=== PATIENT | female | born 1985 | race Two or more races ===

== ENCOUNTER 2023-04-07 21:22 | Inpatient (IN) | payer OTHER ==
[~2023-04-07] VITALS: Ht 162.6 cm; Wt 72.6 kg
[2023-04-08] VITALS: BP 114/63; TEMP 97.9; O2SAT 99
[2023-04-08] MEDS ORDERED: DEXTROSE 50%-WATER 50 ML DISP.SYRIN IV PRN
[2023-04-08] MEDS ORDERED: MORPHINE SULFATE INJ 2 MG/ML DISP.SYRIN IV PRN
[2023-04-08] MEDS ORDERED: ACETAMINOPHEN 325 MG TABLET PO PRN
[2023-04-08] MEDS ORDERED: ONDANSETRON HCL/PF 4 MG/2 ML VIAL IVP PRN
[2023-04-08] MEDS ORDERED: EMPA1TAB5 PO (01:07)
[2023-04-08] MEDS ORDERED: NITR2.5C17 PO (01:07)
[2023-04-08] MEDS ORDERED: CALC-261 PO (01:07)
[2023-04-08] MEDS ORDERED: CARV6.252 PO (01:07)
[2023-04-08] MEDS ORDERED: LEVO50TA8 PO (01:07)
[2023-04-08] MEDS: ATORVASTATIN 10 MG TABLET PO SCH ×2 (03:11→21:54)
[2023-04-08] MEDS: ENOXAPARIN SODIUM 40 MG/0.4 ML DISP.SYRIN SQ SCH ×2 (03:17→21:00)
[2023-04-08 05:50] LABS: BASOPHILS % (AUTO) 0.3 % (0.0-2.0); EOSINOPHILS # (AUTO) 0.3 K/uL (0.0-0.7); EOSINOPHILS % (AUTO) 3.6 % (0.0-6.0); HEMATOCRIT 37 % (33-45); LYMPHOCYTES # (AUTO) 2.3 K/uL (0.8-4.8); LYMPHOCYTES % (AUTO) 28.4 % (20.0-44.0); MEAN CORPUSCULAR HEMOGLOBIN 25 PG (26.0-33.0); MEAN CORPUSCULAR HGB CONC 32 g/dl (31.0-36.0); MEAN CORPUSCULAR VOLUME 77 fL (82-100); MONOCYTES # (AUTO) 0.6 K/uL (0.1-1.30); MONOCYTES % (AUTO) 7.1 % (2.0-12.0); NEUTROPHILS # (AUTO) 4.9 K/uL (1.8-8.9); NEUTROPHILS % (AUTO) 60.6 % (43.0-81.0); PLATELET COUNT (AUTO) 350 K/uL (150-450); RED BLOOD CELL COUNT(AUTO) 4.84 MIL/uL (4.0-5.2); RED CELL DISTRIBUTION WIDTH 15.6 % (11.5-15.0); WHITE BLOOD COUNT (AUTO) 8.1 K/uL (4.3-11.0)
[2023-04-08 06:08] LABS: CALCIUM, SERUM 10.3 mg/dL (8.5-10.1); CREATININE 0.6 mg/dL (0.6-1.3); PHOSPHORUS 5.8 mg/dL (2.5-4.9); POTASSIUM 3.7 mmol/L (3.5-5.1)
[2023-04-08] MEDS: BLOOD SUGAR DIAGNOSTIC 1 EACH STRIP IN SCH ×4 (06:56→22:56)
[2023-04-08 07:00] VITALS: BP 112/69; TEMP 97.8; O2SAT 96
[2023-04-08] MEDS: ASPIRIN 81 MG TAB.CHEW PO SCH (08:05)
[2023-04-08] MEDS ORDERED: LEVO125T8 PO (09:17)
[2023-04-08] MEDS ORDERED: [UNRECOGNIZED DRUG - OTHER] PO (09:17)
[2023-04-08] MEDS ORDERED: [UNRECOGNIZED DRUG - OTHER] PO (09:17)
[2023-04-08] MEDS ORDERED: [UNRECOGNIZED DRUG - OTHER] PO (09:17)
[2023-04-08] MEDS ORDERED: [UNRECOGNIZED DRUG - OTHER] PO (09:17)
[2023-04-08] MEDS ORDERED: [UNRECOGNIZED DRUG - MIXTURE] PO (09:17)
[2023-04-08] MEDS: INSULIN REGULAR, HUMAN 100 UNIT/ML 3 ML VIAL SQ PRN ×3 (11:46→22:55)
[2023-04-08 12:00] VITALS: BP 123/86; TEMP 97.4; O2SAT 100
[2023-04-08] MEDS ORDERED: NITROGLYCERIN 0.4 MG/TAB BOTTLE SL PRN (14:30)
[2023-04-08 16:00] VITALS: BP 132/65; TEMP 98.2; O2SAT 100
[2023-04-08 20:00] VITALS: BP 106/61; TEMP 98; O2SAT 98
[2023-04-09] VITALS: BP 93/63; TEMP 98.2; O2SAT 100
[2023-04-09 04:00] VITALS: BP 105/63; TEMP 97.7; O2SAT 100
[2023-04-09 06:51] LABS: INR 1.2 (0.91-1.10); PROTHROMBIN TIME 12.5 SECS (9.2-11.1)
[2023-04-09 07:00] VITALS: BP 128/86; TEMP 98.1; O2SAT 100
[2023-04-09] MEDS: BLOOD SUGAR DIAGNOSTIC 1 EACH STRIP IN SCH ×4 (07:55→21:31)
[2023-04-09] MEDS: INSULIN REGULAR, HUMAN 100 UNIT/ML 3 ML VIAL SQ PRN ×4 (07:56→21:31)
[2023-04-09] MEDS: ASPIRIN 81 MG TAB.CHEW PO SCH (08:35)
[2023-04-09] MEDS ORDERED: IV NS 0.9% 1,000 ML ONE (09:30)
[2023-04-09] MEDS ORDERED: IV SET PRIMARY PUMP SET 1 EA INFUS.SET MC ONE (09:30)
[2023-04-09] MEDS ORDERED: LIDOCAINE HCL/MPF 1% 30 ML VIAL IJ ONE (09:31)
[2023-04-09] MEDS ORDERED: IODIXANOL 150 ML IV ONE (09:31)
[2023-04-09] MEDS ORDERED: MIDAZOLAM HCL 2 MG/2ML VIAL ONE (09:52)
[2023-04-09] MEDS ORDERED: FENTANYL PF 100MCG/2ML AMPUL ONE (09:52)
[2023-04-09] MEDS ORDERED: IODIXANOL 320MG/ML 50 ML IV ONE (10:08)
[2023-04-09 12:00] VITALS: BP 108/63; TEMP 98; O2SAT 99
[2023-04-09] MEDS: METOPROLOL TARTRATE 25 MG TABLET PO SCH ×2 (12:00→21:29)
[2023-04-09 16:00] VITALS: BP 135/83; TEMP 97.9; O2SAT 100
[2023-04-09 20:00] VITALS: BP 157/89; TEMP 98.1; O2SAT 100
[2023-04-09] MEDS: ATORVASTATIN 10 MG TABLET PO SCH (21:29)
[2023-04-09] MEDS: ENOXAPARIN SODIUM 40 MG/0.4 ML DISP.SYRIN SQ SCH (21:30)
[2023-04-10] VITALS: BP 97/64; TEMP 97.6; O2SAT 100
[2023-04-10 05:18] VITALS: BP 118/78; TEMP 98.2; O2SAT 96
[2023-04-10 06:25] LABS: BASOPHILS % (AUTO) 0.4 % (0.0-2.0); EOSINOPHILS # (AUTO) 0.5 K/uL (0.0-0.7); EOSINOPHILS % (AUTO) 4.9 % (0.0-6.0); HEMATOCRIT 39 % (33-45); HEMOGLOBIN 12.6 g/dL (11.5-14.8); LYMPHOCYTES # (AUTO) 2.5 K/uL (0.8-4.8); LYMPHOCYTES % (AUTO) 25.4 % (20.0-44.0); MEAN CORPUSCULAR HEMOGLOBIN 25 PG (26.0-33.0); MEAN CORPUSCULAR HGB CONC 32 g/dl (31.0-36.0); MEAN CORPUSCULAR VOLUME 77 fL (82-100); MONOCYTES # (AUTO) 0.6 K/uL (0.1-1.30); MONOCYTES % (AUTO) 6.3 % (2.0-12.0); NEUTROPHILS # (AUTO) 6.2 K/uL (1.8-8.9); PLATELET COUNT (AUTO) 353 K/uL (150-450); RED BLOOD CELL COUNT(AUTO) 5.06 MIL/uL (4.0-5.2); RED CELL DISTRIBUTION WIDTH 15.4 % (11.5-15.0); WHITE BLOOD COUNT (AUTO) 9.9 K/uL (4.3-11.0)
[2023-04-10] MEDS: BLOOD SUGAR DIAGNOSTIC 1 EACH STRIP IN SCH ×2 (06:39→12:40)
[2023-04-10] MEDS: INSULIN REGULAR, HUMAN 100 UNIT/ML 3 ML VIAL SQ PRN ×2 (06:40→12:13)
[2023-04-10 07:00] VITALS: BP 115/68; TEMP 97.8; O2SAT 97
[2023-04-10 08:00] LABS: ALBUMIN 3.7 g/dL (3.4-5.0); BILIRUBIN,TOTAL 0.3 mg/dL (0.2-1.0); CALCIUM, SERUM 9.2 mg/dL (8.5-10.1); CREATININE 0.6 mg/dL (0.6-1.3); MAGNESIUM 2.2 mg/dL (1.8-2.4); PHOSPHORUS 3.5 mg/dL (2.5-4.9); POTASSIUM 3.7 mmol/L (3.5-5.1)
[2023-04-10] MEDS: ASPIRIN 81 MG TAB.CHEW PO SCH (08:58)
[2023-04-10] MEDS: METOPROLOL TARTRATE 25 MG TABLET PO SCH (08:58)
[2023-04-10 12:00] VITALS: BP 110/66; TEMP 97.7; O2SAT 98
[2023-04-10] MEDS ORDERED: MUPIROCIN OINT 2% 22 GM TUBE NS SCH (17:00)
== END 2023-04-10 16:00 | disposition home or self-care (01) | DRG 191 ==
LOC: TELE 21:22
PROVIDERS: ADMIT Nurse Practitioner Acute Care
PROC: 4A023N7 Measurement of Cardiac Sampling and Pressure, Left Heart, Percutaneous Approach (ICD-10-PCS; principal; 2023-04-09)
PROC: B211YZZ Fluoroscopy of Multiple Coronary Arteries using Other Contrast (ICD-10-PCS; 2023-04-09)
DX: I25.110 Atherosclerotic heart disease of native coronary artery with unstable angina pectoris (principal); E87.1 Hypo-osmolality and hyponatremia; E11.65 Type 2 diabetes mellitus with hyperglycemia; E66.9 Obesity, unspecified; D64.9 Anemia, unspecified; E78.5 Hyperlipidemia, unspecified; I25.119 Atherosclerotic heart disease of native coronary artery with unspecified angina pectoris; I10 Essential (primary) hypertension; Z68.27 Body mass index [BMI] 27.0-27.9, adult; Z79.84 Long term (current) use of oral hypoglycemic drugs
CPT/HCPCS: 36415; 80048-TC; 80053-TC; 80061-TC; 82962-TC; 83735-TC; 84100-TC; 85025-TC; 85610-TC; 87081-TC; 93452; A4223; G0378; J1644; J1650; J1815; J2250; J3010; J3490; J7030; Q9967